=== PATIENT | female | born 1945 | race Caucasian/White ===

== ENCOUNTER 2024-06-03 09:36 | Inpatient (IN) ==
[2024-06-03] MEDS ORDERED: IOPAMIDOL 100 ML BOTTLE IV ONE (09:37)
[2024-06-03] MEDS: ONDANSETRON 4 MG/2 ML VIAL IV ONE ×2 (10:16→12:31)
[2024-06-03] MEDS: ONDANSETRON 4 MG/2 ML VIAL ONE (10:24)
[2024-06-03] MEDS: 0.9 % SODIUM CHLORIDE 1,000 ML IV ONE (10:24)
[2024-06-03 11:10] LABS: Basophils # (Auto) 0.03 K/mcL (0.00-0.30); Basophils % (Auto) 0.1 % (0.0-2.0); Eosinophils # (Auto) 0 K/mcL (0.00-0.70); Eosinophils % (Auto) 0 % (0.0-7.0); Hematocrit 41.1 % (34.1-44.9); Hemoglobin 12.8 g/dL (11.2-15.7); Lymphocytes # (Auto) 1.59 K/mcL (1.50-4.80); Lymphocytes % (Auto) 6.9 % (15.5-49.0); Mean Cell Volume 71.9 fL (80.0-100.0); Mean Corpuscular HGB Conc 31.1 g/dL (31.0-36.0); Mean Platelet Volume 10.7 fL (8.8-12.5); Monocytes # (Auto) 2.06 K/mcL (0.10-0.90); Neutrophils % (Auto) 83.8 % (38.0-78.0); Platelet Count 481 K/mcL (140-440); RBC 5.72 M/mcL (3.59-5.38); Red Cell Distribution Width 16.9 % (11.5-14.5); WBC 22.9 K/mcL (4.5-11.0)
[2024-06-03 11:22] LABS: ALT/SGPT 6 U/L (<40); AST/SGOT 37 U/L (<32); Albumin 5.1 gm/dL (3.2-5.2); Albumin/Globulin Ratio 1.5 (1.0-2.3); Alkaline Phosphatase 118 U/L (39-117); Bilirubin,Total 1.2 mg/dL (0.1-1.0); Blood Urea Nitrogen 43 mg/dL (8-23); Calcium 11.1 mg/dL (8.6-10.4); Carbon Dioxide 46 mmol/L (22-30); Chloride 70 mmol/L (96-108); Globulin 3.5 gm/dL (2.2-3.7); Glomerular Filtration Rate 22; Glucose 150 mg/dL (70-105); Sodium 135 mmol/L (133-145)
[2024-06-03] MEDS: ACETAMINOPHEN 1,000 MG/100 ML BAG IV ONE (11:51)
[2024-06-03] MEDS: AZITHROMYCIN 500 MG in DEXTROSE 5% IN WATER 250 ML IV ONE (13:42)
[2024-06-03] MEDS: POTASSIUM CHLORIDE 20 MEQ in DEXTROSE 5% IN WATER 250 ML IV ONE (13:42)
[2024-06-03 13:43] LABS: Appearance,Urine HAZY (Clear); Bilirubin,Urine Negative (Negative); Color,Urine YELLOW; Culture Indicated,Urine No; Glucose,Urine (UA) Negative (Negative); Ketones,Urine Negative (Negative); Leukocyte Esterase,Urine Negative /uL (Negative); Mucus,Urine FEW /hpf; Nitrate,Urine Negative (Negative); Protein,Urine 30 mg/dL (Negative); Specific Gravity,Urine 1.033 (1.000-1.035); Urine Blood 0.03 mg/dL (Negative); Urine Granular Cast 1 /lph (0-0); Urine Hyaline Cast 187 /lph (0-2); Urine RBC 2 /hpf (0-3); Urine Squamous Epithelial Cell < 1 /hpf (0-4); Urine Transitional Epi Cells 1 /hpf (0-2); Urine WBC 4 /hpf (0-4); Urobilinogen,Urine Negative
[2024-06-03] MEDS: LACTATED RINGERS 1,000 ML IV ONE (15:18)
[2024-06-03] MEDS: LACTATED RINGERS 1,000 ML IV SCH (15:19)
[2024-06-03] MEDS: HYDROmorphone 0.5 MG/0.5 ML SYRINGE IV ONE (15:43)
[2024-06-03] MEDS: 0.9 % SODIUM CHLORIDE 1,000 ML IV SCH (15:43)
[2024-06-03] MEDS: LEVOFLOXACIN 750 MG/150 ML BAG IV ONE (16:07)
[2024-06-03] MEDS ORDERED: IPRATROPIUM/ALBUTEROL 3 ML AMPUL.NEB NEB PRN (17:30)
[2024-06-03] MEDS: METHYLNALTREXONE BROMIDE 12 MG/0.6 ML SYRINGE SQ SCH (17:40)
[2024-06-03] MEDS: METOCLOPRAMIDE 10 MG/2 ML VIAL IV SCH (19:13)
[2024-06-03] MEDS: 0.9 % SODIUM CHLORIDE 10 ML SYRINGE IV SCH (21:53)
[2024-06-03] MEDS: HEPARIN 5,000 UNIT/ML VIAL SQ SCH (21:53)
[2024-06-04] MEDS: ACETAMINOPHEN 650 MG/65 ML BAG IV PRN (05:36)
[2024-06-04 06:52] LABS: Basophils # (Auto) 0.01 K/mcL (0.00-0.30); Basophils % (Auto) 0.1 % (0.0-2.0); Eosinophils # (Auto) 0 K/mcL (0.00-0.70); Eosinophils % (Auto) 0 % (0.0-7.0); Hematocrit 36.6 % (34.1-44.9); Hemoglobin 11.1 g/dL (11.2-15.7); Lymphocytes # (Auto) 1.22 K/mcL (1.50-4.80); Mean Cell Volume 74.4 fL (80.0-100.0); Mean Corpuscular HGB Conc 30.3 g/dL (31.0-36.0); Mean Platelet Volume 10.4 fL (8.8-12.5); Monocytes # (Auto) 1.35 K/mcL (0.10-0.90); Neutrophils % (Auto) 80.8 % (38.0-78.0); Platelet Count 366 K/mcL (140-440); RBC 4.92 M/mcL (3.59-5.38); Red Cell Distribution Width 15.8 % (11.5-14.5); WBC 13.5 K/mcL (4.5-11.0)
[2024-06-04 07:32] LABS: ALT/SGPT < 5 U/L (<40); AST/SGOT 27 U/L (<32); Albumin 4.3 gm/dL (3.2-5.2); Albumin/Globulin Ratio 1.4 (1.0-2.3); Alkaline Phosphatase 95 U/L (39-117); Bilirubin,Direct 0.2 mg/dL (<0.3); Bilirubin,Total 1.2 mg/dL (0.1-1.0); Blood Urea Nitrogen 46 mg/dL (8-23); Calcium 9.7 mg/dL (8.6-10.4); Carbon Dioxide 42 mmol/L (22-30); Chloride 78 mmol/L (96-108); Globulin 3.1 gm/dL (2.2-3.7); Glomerular Filtration Rate 28; Glucose 117 mg/dL (70-105); Lactate Dehydrogenase 206 U/L (135-225); Phosphorous 4.9 mg/dL (2.5-4.5); Potassium 2.4 mmol/L (3.3-5.1); Sodium 138 mmol/L (133-145); Triglycerides 104 mg/dL (<150); Uric Acid 11.7 mg/dL (2.5-8.0)
[2024-06-04] MEDS: PANTOPRAZOLE 40 MG VIAL IV SCH (08:30)
[2024-06-04] MEDS: HYDROmorphone 0.5 MG/0.5 ML SYRINGE IV PRN (08:31)
[2024-06-04] MEDS: POTASSIUM CHLORIDE 80 MEQ in DEXTROSE 5% IN WATER 1,000 ML IV ONE (08:45)
[2024-06-04 18:19] LABS: Potassium 3.2 mmol/L (3.3-5.1)
[2024-06-04] MEDS: ONDANSETRON 4 MG/2 ML VIAL IV PRN (19:29)
[2024-06-04] MEDS: LORazepam 2 MG/ML VIAL IV PRN (21:03)
[2024-06-04] MEDS: POTASSIUM CHLORIDE 40 MEQ in DEXTROSE 5% IN WATER 500 ML IV ONE (22:50)
[2024-06-05] MEDS: POTASSIUM CHLORIDE 20 MEQ/10 ML VIAL IV ONE ×2 (01:10→03:55)
[2024-06-05 03:42] LABS: Potassium 3.3 mmol/L (3.3-5.1)
[2024-06-05] MEDS: POTASSIUM CHLORIDE 20 MEQ in DEXTROSE 5% IN WATER 250 ML IV ONE (03:54)
[2024-06-05] MEDS: LORazepam 2 MG/ML VIAL IV ONE (05:12)
[2024-06-05 06:31] LABS: Basophils # (Auto) 0.02 K/mcL (0.00-0.30); Basophils % (Auto) 0.1 % (0.0-2.0); Eosinophils # (Auto) 0 K/mcL (0.00-0.70); Eosinophils % (Auto) 0 % (0.0-7.0); Hematocrit 35.6 % (34.1-44.9); Hemoglobin 10.7 g/dL (11.2-15.7); Lymphocytes # (Auto) 1.23 K/mcL (1.50-4.80); Lymphocytes % (Auto) 8.6 % (15.5-49.0); Mean Cell Volume 75.6 fL (80.0-100.0); Mean Corpuscular HGB Conc 30.1 g/dL (31.0-36.0); Mean Platelet Volume 10.5 fL (8.8-12.5); Monocytes # (Auto) 1.57 K/mcL (0.10-0.90); Monocytes % (Auto) 10.9 % (1.0-12.0); Neutrophils % (Auto) 80.3 % (38.0-78.0); Platelet Count 356 K/mcL (140-440); RBC 4.71 M/mcL (3.59-5.38); Red Cell Distribution Width 15.5 % (11.5-14.5); WBC 14.3 K/mcL (4.5-11.0)
[2024-06-05 06:58] LABS: ALT/SGPT < 5 U/L (<40); AST/SGOT 26 U/L (<32); Albumin 4.3 gm/dL (3.2-5.2); Albumin/Globulin Ratio 1.4 (1.0-2.3); Alkaline Phosphatase 87 U/L (39-117); Bilirubin,Direct 0.2 mg/dL (<0.3); Bilirubin,Total 0.9 mg/dL (0.1-1.0); Blood Urea Nitrogen 37 mg/dL (8-23); Carbon Dioxide 40 mmol/L (22-30); Chloride 83 mmol/L (96-108); Glomerular Filtration Rate 47; Glucose 148 mg/dL (70-105); Lactate Dehydrogenase 248 U/L (135-225); Potassium 3.1 mmol/L (3.3-5.1); Sodium 134 mmol/L (133-145); Triglycerides 67 mg/dL (<150); Uric Acid 11.5 mg/dL (2.5-8.0)
[2024-06-05] MEDS: LEVOFLOXACIN 500 MG/100 ML BAG IV SCH (09:00)
[2024-06-05] MEDS: POTASSIUM CHLORIDE 40 MEQ in DEXTROSE 5% IN WATER 500 ML IV ONE (09:57)
[2024-06-05] MEDS: 0.9 % SODIUM CHLORIDE 1,000 ML IV SCH (20:45)
[2024-06-05 21:49] VITALS: TEMP 97.7; O2SAT 94
== END 2024-06-05 22:24 | disposition short-term general hospital (02) | DRG 388 ==
LOC: ED 09:36 → MEDSUR 16:34
PROVIDERS: ADMIT Student in an Organized Health Care Education/Training Program; ATTEND Family Medicine Adult Medicine